=== PATIENT | female | born 1935 | race African-American/Black ===

== ENCOUNTER 2017-05-16 08:55 | Day surgery (SDC) | payer OTHER ==
[2017-05-15 11:27] VITALS: BMI 27.4
[2017-05-16] MEDS ORDERED: MIDAZOLAM HCL 2 MG/2 ML SINGLE DOSE VIAL ONE (09:06)
[2017-05-16] MEDS ORDERED: PROPOFOL 20 ML ONE (09:06)
[2017-05-16] MEDS ORDERED: BUPIVACAINE HCL/PF 2.5 MG/ML - 30 ML VIAL IJ ONE (10:30)
[2017-05-16] MEDS ORDERED: BUPIVACAINE HCL/PF 0.25% (2.5MG/ML) 10 ML VIAL IJ ONE (10:35)
[2017-05-16] MEDS ORDERED: ONDANSETRON 4 MG/2 ML VIAL IVPUSH PRN (11:54)
--- NOTE | 2017-05-16 11:55 | OP ---
Operative Note - Note: Operative Date: 05/16/17 Pre-Operative Diagnosis: Multiple Large Painful Keloids Both Breasts Across Midline Operation: Partial Excision Multiple Large Painful Keloids Both Breasts and Chest Post-Operative Diagnosis: Same as Pre-op Surgeon: Teja Hall Anesthesia: General Specimens Removed: Multiple Large Keloids Estimated Blood Loss (mls): 30 Operative Report Dictated: Yes
[2017-05-16] MEDS ORDERED: LACTATED RINGERS SOLUTION 1,000 ML IV SCH (12:00)
[2017-05-16] MEDS ORDERED: oxyCODONE HCL 5 MG TABLET PO PRN ×2 (12:05→13:14)
[2017-05-16] MEDS ORDERED: ACETAMINOPHEN 500 MG TABLET (FP) PO PRN (12:05)
[2017-05-16] MEDS ORDERED: ONDANSETRON 4 MG/2 ML VIAL ONE (12:45)
[2017-05-16 13:24] VITALS: TEMP 97.5
--- NOTE | 2017-05-16 13:59 | OP ---
DATE OF OPERATION: 05/16/2017 PREOPERATIVE DIAGNOSIS: Multiple large painful keloids of the chest in both breasts. SURGEON: Teja Hall MD ANESTHESIA: General via LMA. DESCRIPTION OF PROCEDURE: The patient was on the operating table in supine position, and the area of the chest was prepped and draped in the usual sterile fashion. 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 There were also several additional areas that were disconnected from this original area. Portions of this keloid were unusually wide, so, I elected to incisionally excise this lesion reducing the bulk of the lesion from within. This was designed with a marking pen, and the area was infiltrated with 0.25% Marcaine. After allowing sufficient time for the Marcaine to take effect, the incision as designed was made using No. 15 scalpel blade and carried down sharply through subcutaneous tissues. Hemostasis was achieved with the electrocautery, and the tissue was excised. Layered closure was then performed. Deep tissues were closed with No. 3-0 Biosyn suture in interrupted buried fashion, and multiple 4-0 nylon simple sutures were placed for skin, sewing keloid to keloid. There were several areas laterally on the left breast that were totally excised and again closed in layered fashion. The skin in these areas was closed with 4-0 Prolene sutures in continuous subcuticular fashion. Sterile dressings were then applied and secured with a surgical bra. The patient was then awoken from anesthesia without any difficulty and taken from the operating room to the recovery room in satisfactory condition having tolerated the procedure well. Analilia HIGH/[id number]
[2017-05-16 15:11] VITALS: PULSE 67
[2017-05-16 15:18] VITALS: BP 133/67
--- NOTE | 2017-05-17 12:52 | PATH ---
Surgical Pathology Report Patient Name: LINDA MURPHY Med. Rec. #: [id number] /Age/Gender: 1935 (Age: 81) / F Account: [id number] Location: [facility] Taken: 05/16/2017 Received: 05/16/2017 Reported: 05/17/2017 Physicians: Teja Hall M.D. Specimen(s) Received KELOID CHEST Clinical History Keloid Final Diagnosis SKIN, CHEST, EXCISION: HYPERPLASTIC SCARS CONSISTENT WITH KELOID. Electronically Signed Dejan Horne M.D. Gross Description Received in formalin labeled "keloid chest," are 2 brown, elliptical, unoriented portions of skin with underlying soft tissue measuring 5.5 x 2.5 cm and 10.5 x 2.2 cm. The epidermal surfaces display hypertrophic scars. Cam Maker sections are submitted in 2 cassettes as follows: 1-smaller portion of skin; 2-larger portion of skin. /05/16/2017 saudi/05/16/2017
== END 2017-05-16 15:05 | disposition home or self-care (01) ==
LOC: FASU 08:55
PROVIDERS: ATTEND Plastic Surgery
PROC: 0HBVXZZ (ICD-10-PCS; 2017-05-16)
PROC: 0HQVXZZ (ICD-10-PCS; principal; 2017-05-16 10:03)
DX: L91.0 Hypertrophic scar (principal)
CPT/HCPCS: 88304-TC; 94760

== ENCOUNTER → 2018-03-11 | Day surgery (SDC) | payer OTHER ==
--- NOTE | 2018-03-12 12:55 | PATH ---
Surgical Pathology Report Patient Name: LINDA MURPHY [facility]. Rec. #: [id number] /Age/Gender: 1935 (Age: 82) / F Account: [id number] Location: [facility]OLOG[facility] Taken: 03/11/2018 Received: 03/11/2018 Reported: 03/12/2018 Physicians: Analilia Smith M.D. Specimen(s) Received 1.5 CM INTRADUCTAL LESION RIGHT Clinical History Probably benign lesion Final Diagnosis RIGHT BREAST INTRADUCTAL LESION, ULTRASOUND GUIDED CORE BIOPSY: FRAGMENTED BREAST TISSUE SHOWING FIBROTIC CYSTIC WALL LINED BY BENIGN DUCTAL EPITHELIUM WITH FOCAL SCLEROTIC PAPILLARY FEATURE. COMMENT: FINDINGS MAY REPRESENT AN INTRADUCTAL PAPILLOMA WITH SCLEROSIS. CLINICAL CORRELATION IS RECOMMENDED. Electronically Signed Fred Rene M.D. Gross Description Received in formalin labeled "breast core biopsy" are multiple graham to yellow cylindrical portions of fibroadipose tissue ranging from 0.2-0.6 cm in length and averages 0.2 cm in diameter, measuring aggregate 1 x 0.5 x 0.1 cm. The specimen is entirely submitted in 1 cassette. Time from tissue taken to be placed in formalin: Less than one minute Total formalin fixation time: Between 9-10 hours. __ MIRA/03/11/2018 yarely/03/11/2018
== END | disposition home or self-care (01) ==
LOC: JRADUS-SUR 11:12
PROVIDERS: ATTEND Family Medicine
PROC: 0HBT3ZX Excision of Right Breast, Percutaneous Approach, Diagnostic (ICD-10-PCS; principal; 2018-03-11)
DX: D24.1 Benign neoplasm of right breast (principal); N60.11 Diffuse cystic mastopathy of right breast
CPT/HCPCS: 19083; 87899; 88305-TC

== ENCOUNTER 2018-06-11 08:57 | Day surgery (SDC) | payer OTHER ==
[2018-06-10 12:21] VITALS: BMI 27.6
[2018-06-11 10:24] VITALS: TEMP 97.6
[2018-06-11 11:46] VITALS: BP 125/60; PULSE 69
--- NOTE | 2018-06-12 16:00 | PATH ---
Surgical Pathology Report Patient Name: LINDA MURPHY [facility]. Rec. #: [id number] /Age/Gender: 1935 (Age: 82) / F Account: [id number] Location: [facility]-ENDOSCOPY Taken: 06/11/2018 Received: 06/11/2018 Reported: 06/12/2018 Physicians: Josafat Valle M.D. 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 IMMUNOHISTOCHEMICAL STAIN FOR H. PYLORI IS NEGATIVE. Electronically Signed Louise Hall M.D. Gross Description Received in formalin, labeled "gastric antrum" are 2 graham, irregular portions of soft tissue measuring 0.3 and 0.4 cm. in greatest dimension. The specimens are submitted in toto in one cassette. /06/11/2018 saudi06/11/2018
== END 2018-06-11 12:26 | disposition home or self-care (01) ==
LOC: JASU-ENDO 08:57
PROVIDERS: ATTEND Internal Medicine Gastroenterology
PROC: 0DB68ZX Excision of Stomach, Via Natural or Artificial Opening Endoscopic, Diagnostic (ICD-10-PCS; principal; 2018-06-11 10:45)
DX: R10.13 Epigastric pain (principal)
CPT/HCPCS: 82962; 88305-TC; 88342-TC